=== PATIENT | male | born 2005 | race Two or more races ===

== ENCOUNTER 2025-07-06 22:16 | Emergency (ER) | payer MEDICAID, SELFPAY ==
[2025-07-06 22:17] VITALS: BP 162/98; PULSE 98; RESP 16; TEMP 37.3; O2SAT 98
--- NOTE | 2025-07-06 22:17 | PD.EDSEIZ ---
ED Seizures RME/HPI General Chief Complaint: Seizure Stated Complaint: seizures Time Seen by Provider: 07/06/25 22:17 Arrival date/time: 07/06/25 22:16 RME / HPI RME / HPI Narrative: Dr. Rubio?[facility] Main ED Evaluation: 19yo male with a history of developmental delay, seizure disorder BIBA from home presents to the ED for a chief complaint of a seizure. Per EMS, patient fell off of his bed during the seizure and hit his head. Grandma was concerned due to there being a bump on the patient's forehead, so he was sent over for evaluation. Blood sugar en route was 219. Full ROS is unobtainable due to the patient's history of developmental delay. Related Data Home Medications ?Medication ?Instructions ?Recorded ?Confirmed Divalproex Sodium SPRINKLE * 375 mg PO BID ##0 03/29/12 (DEPAKOTE SPRINKLE *) Guanfacine Hcl 1 mg PO BID ##0 03/29/12 acetazolamide 250 mg tablet 250 mg PO BID ##0 03/29/12 diazepam 5 mg/mL injection syringe 2 ml buccal PRN ##0 03/29/12 escitalopram oxalate 5 mg/5 mL 7.5 mg PO DAILY ##0 03/29/12 oral solution (Lexapro) risperidone 1 mg/mL oral solution 0.5 mg PO DAILY ##0 03/29/12 risperidone 1 mg/mL oral solution 1.5 mg PO HS ##0 03/29/12 zonisamide 50 mg capsule (Zonegran) 200 mg PO HS ##0 03/29/12 Allergies Allergy/AdvReac Type Severity Reaction Status Date / Time NKA* Allergy Uncoded 07/06/25 22:17 Review of Systems Review of Systems ROS Unobtainable: other (unobtainable due to the patient's history of developmental delay) Past Medical History Past Medical History CARDIAC: Negative Congestive Heart Failure RESPIRATORY: Negative Chronic Obstructive Pulmonary Disease (COPD) GENITOURINARY: Negative Renal Disease ENDOCRINE: Negative Diabetes Mellitus Type 1 or Diabetes Mellitus Type 2 Social History SMOKING STATUS: Never smoker ED Exam Narrative Physical exam: Generally patient is severely mentally delayed and nonverbal, head shows a cephalohematoma to right lower forehead without laceration, neck shows no deformity without obvious midline tenderness oropharynx shows very poor dentition, extremities show muscle wasting, heart regular rate and rhythm, lungs clear to auscultation bilaterally, neurologic exam shows the patient to be nonverbal and severely mentally delayed Course Quality Measures none Orders Category Date Time Status Straight [In and Out Catheter] X1 Care 07/06/25 22:[address] head/brain wo con Stat Exams 07/06/25 22:18 Taken Vital Signs Vital signs: Vital Signs Temperature 99.1 F 07/06/25 22:17 Pulse Rate 98 07/06/25 22:17 Respiratory Rate 16 07/06/25 22:17 Blood Pressure 162/98 H 07/06/25 22:17 Pulse Oximetry (%) 98 07/06/25 22:17 Oxygen Delivery Method Room Air 07/06/25 22:17 Seizure MDM Narrative MDM Narrative:: Scribe Attestation: 07/06/25 - Kelly Neal am scribing for and in the presence of Dr. Rubio. Patient's grandmother is at bedside who takes care of him. He has been compliant with his antiseizure medication. CAT scan of the brain showed no skull fracture no intracerebral bleed with encephalomalacia. Very similar CAT scan findings to 1 done in 2023. The patient's grandmother feels comfortable taking the patient home. Patient will be discharged in stable condition. Patient data External records reviewed:: [facility] previous records (Per chart review, patient was seen here on 11/25/23 for a fall.) Clinical information provided by:: EMS Social determinants that could affect healthcare access:: none Patient has the following chronic illnesses:: developmental delay, seizure disorder How is presenting disease/condition affected by chronic disease/condition?: caused by Evaluation data The following diagnostics were reviewed and interpreted by me:: radiology exam(s) Lab and/or radiology exams considered but not ordered:: none Interpretation Summary: See MDM Medications / Prescriptions Medications or Prescriptions considered but not ordered:: none Medication administrations:: none Consultations Consultation(s) initiated? (list below): No Diagnosis Seizure Differential Diagnosis: other (See MDM) Most likely diagnosis given after review of the tests above:: see clinical impression below Admission Indicated Admission indicated?: not indicated Admission Request Was there a request for admission?: No Disposition Plan Disposition Plan: Discharge Discharge Attestation Discharge Attestation: The patient and all family members were given an opportunity to ask questions and understood the discharge instructions. Discharge instructions specifically effects, indications for sooner follow up or return to the emergency department, and the expected course of current diagnosis. Patient condition: Stable Discharge Plan Plan Patient Disposition: HOME (Self Care) Prescriptions/Referrals Prescriptions/Med Rec: No Action acetazolamide 250 MG tablet 250 mg PO BID Qty: 0 risperidone 1 MG/1 ML solution 0.5 mg PO DAILY Qty: 0 risperidone 1 MG/1 ML solution 1.5 mg PO HS Qty: 0 diazepam 5 MG/ML syringe 2 ml buccal PRN Qty: 0 escitalopram oxalate [Lexapro] 5 MG/5 ML solution 7.5 mg PO DAILY Qty: 0 zonisamide [Zonegran] 50 MG capsule 200 mg PO HS Qty: 0 Divalproex Sodium SPRINKLE * (DEPAKOTE SPRINKLE *) 125 MG CAP.SPRINK 375 mg PO BID Qty: 0 Guanfacine Hcl 1 MG tablet 1 mg PO BID Qty: 0 Problem List Clinical Impression: Epileptic seizure, Cephalohaematoma Patient/Caregiver Discharge Instructions Additional Instructions: Continue current medications. Return as needed. Print Language: Bol[place]ian Stand Alone Forms: Kayleigh Award Info., Patient Portal Info Letter
--- NOTE | 2025-07-06 22:18 | XR_ITS ---
Examination: CT brain head without contrast. 2-D sagittal coronal reconstructions Date and time of exam: July 06, 2025 10:20 p.m., comparison November 25, 2023 INDICATIONS: Seizure today followed by altered mental status CTDI: vol (mGy): 45.4 DLP: (mGycm): 917 Technique: Multiple CT axial sections of the brain have been obtained, 5 mm slice thickness. Contrast has not been administered. 2-D sagittal, coronal reconstructions have been obtained Low dose protocols were performed. One or more of the following dose reduction techniques were used; automated exposure control, adjustment of the mA and/or KV according to patient size, use of iterative reconstruction technique. Findings: No significant ventricular enlargement. Soft tissue swelling right forehead scalp Significant frontal ethmoid sinusitis Intra-axial or extra-axial hemorrhage density is not seen. No mass effect or midline shift Basal cisterns are not remarkable. Fourth ventricle is midline. Again noted left upper craniotomy defect with encephalomalacia in the parietal lobes and stable position ventriculostomy drainage catheter Impression: No interval acute hemorrhage, mass effect or midline shift Clinical correlation and follow-up advised as clinically warranted
[2025-07-06 22:20] VITALS: PULSE 92; O2SAT 97; BMI 21.7
[2025-07-06 23:30] VITALS: BP 139/84; PULSE 86; RESP 18; O2SAT 98
== END 2025-07-06 23:30 | disposition home or self-care (01) ==
PROVIDERS: Emergency Provider Emergency Medicine; PCP Student in an Organized Health Care Education/Training Program
DX: G40.909 Epilepsy, unspecified, not intractable, without status epilepticus (principal); W06.XXXA Fall from bed, initial encounter; Y92.003 Bedroom of unspecified non-institutional (private) residence as the place of occurrence of the external cause; S00.93XA Contusion of unspecified part of head, initial encounter
CPT/HCPCS: 51701; 70450; 99282

== ENCOUNTER → 2025-07-16 | Outpatient (CLI) | payer MEDICAID, SELFPAY ==
--- NOTE | 2025-07-16 11:33 | XR_ITS ---
Examination: Knee bilateral, 6 views Technique: Knee AP, lateral, oblique each knee total 6 views Date and time of exam: July 16, 2025, 1137 hours INDICATIONS: Patient fell 5 days ago with injury of both knees, bilateral knee pain. FINDINGS: No acute fracture Limited study with no true lateral views of the knees IMPRESSION: Limited study with no acute fractures
== END | disposition home or self-care (01) ==
PROVIDERS: PCP Student in an Organized Health Care Education/Training Program; Referring Provider Student in an Organized Health Care Education/Training Program; Visit Provider Student in an Organized Health Care Education/Training Program
DX: S89.92XA Unspecified injury of left lower leg, initial encounter (principal); S89.91XA Unspecified injury of right lower leg, initial encounter; W19.XXXA Unspecified fall, initial encounter
CPT/HCPCS: 73562